=== PATIENT | male | born 1950 | race Caucasian/White ===

== ENCOUNTER 2018-05-01 20:40 | Emergency (ER) | payer MEDICARE, OTHER ==
[2018-05-01] MEDS ORDERED: Ondansetron 4 MG/2 ML SDV IVPUSH PRN (21:11)
[2018-05-01] MEDS ORDERED: Morphine 4 MG/ML Syringe IVPUSH ONE (21:11)
[2018-05-01] MEDS ORDERED: Morphine 2 MG/ML Syringe ONE (21:18)
--- NOTE | 2018-05-01 21:27 | EDM.PDOC ---
ED HPI GENERAL MEDICAL PROBLEM - General Chief Complaint: Gastrointestinal Problem Stated Complaint: abd pain Time Seen by Provider: 05/01/18 20:58 Source of Information: Reports: Patient History Limitations: Reports: No Limitations - History of Present Illness INITIAL COMMENTS - FREE TEXT/NARRATIVE: David is a 67 yo male who presents to the ER with complaints of severe lower abdominal pain. He states the pain initially started this morning and has progressively worsened. Had a normal bowel movement this morning. Denies any constipation or diarrhea. States he will typically go a few times a day and that is regular for him. He had some flank pain yesterday but that has subsided. Denies any fevers. Admits to nausea today with an episode of emesis earlier. States the pain seems to intensify and then will let up a little. 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 No known history of diverticulitis. Last colonoscopy was done in 2015 and showed mild diverticulosis per clinic chart. States he has been getting a lot of gal horses as well lately. Duration: Constant, Getting Worse, Waxing/Waning Location: Reports: Abdomen Quality: Reports: Sharp, Stabbing Improves with: Reports: None Context: Denies: Sick Contact Associated Symptoms: Reports: Loss of Appetite, Nausea/Vomiting Lower Abdominal Pain Score (Numeric/FACES): 6 - Related Data Allergies Allergy/AdvReac Type Severity Reaction Status Date / Time No Known Allergies Allergy Verified 05/01/18 20:49 Home Meds: Home Meds Carvedilol 25 mg PO BID 04/13/15 [History] Furosemide 20 mg PO DAILY 04/13/15 [History] Levothyroxine Sodium 125 mg PO DAILY 04/13/15 [History] Omeprazole 20 mg PO DAILY 04/13/15 [History] Warfarin [Coumadin] 2.5 mg PO DAILY 04/13/15 [History] Ascorbate Calcium [Vitamin C] 500 mg PO DAILY 07/14/16 [History] Aspirin [Adult Low Dose Aspirin EC] 81 mg PO DAILY 07/14/16 [History] Cholecalciferol (Vitamin D3) [Vitamin D3] 2,000 units PO DAILY 07/14/16 [History ] Ezetimibe/Simvastatin [Vytorin 10-40 mg Tablet] 1 tab PO DAILY 07/14/16 [History ] Fish Oil/DHA/EPA [Fish Oil 1,200 MG] 1 each PO DAILY 07/14/16 [History] Folic Acid 1 mg PO DAILY 07/14/16 [History] Losartan [Cozaar] 50 mg PO DAILY 07/14/16 [History] Nitroglycerin [Nitrostat] 0.4 mg SL DAILY PRN 07/14/16 [History] Spironolactone [Aldactone] 25 mg PO DAILY 07/14/16 [History] Testosterone Cypionate [Depo-Testosterone] 200 mg IM Q30D 07/14/16 [History] Ubidecarenone [Co Q-10] 200 mg PO DAILY 07/14/16 [History] Vitamin B Complex 1 cap PO DAILY 07/14/16 [History] Past Medical History HEENT History: Reports: None Cardiovascular History: Reports: Bypass, CAD, Cardiomyopathy, High Cholesterol, Hypertension Respiratory History: Reports: None Gastrointestinal History: Reports: None Genitourinary History: Reports: None Musculoskeletal History: Reports: Arthritis Neurological History: Reports: None Psychiatric History: Reports: None 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, Cottonwood's Disease, Hypothyroidism Hematologic History: Reports: None Immunologic History: Reports: None Oncologic (Cancer) History: Reports: None Dermatologic History: Reports: None - Past Surgical History Head Surgeries/Procedures: Reports: None HEENT Surgical History: Reports: Naso-Sinus Surgery, Tonsillectomy Cardiovascular Surgical History: Reports: Coronary Artery Bypass Respiratory Surgical History: Reports: None GI Surgical History: Reports: Appendectomy, Hernia, Abdominal Male Surgical History: Reports: None Neurological Surgical History: Reports: None Musculoskeletal Surgical History: Reports: None Oncologic Surgical History: Reports: None Social & Family History - Tobacco Use Smoking Status *Q: Never Smoker - Alcohol Use Days Per Week of Alcohol Use: 7 Number of Drinks Per Day: 1 Total Drinks Per Week: 7 - Recreational Drug Use Recreational Drug Use: No ED ROS GENERAL - Review of Systems Review Of Systems: See Below Constitutional: Reports: Decreased Appetite. Denies: Fever, Chills HEENT: Reports: No Symptoms Respiratory: Reports: No Symptoms Cardiovascular: Reports: No Symptoms GI/Abdominal: Reports: Abdominal Pain, Decreased Appetite, Nausea, Vomiting. Denies: Bloody Stool, Constipation, Diarrhea, Stool Incontinence : Reports: Flank Pain (yesterday but has since subsided). Denies: Discharge, Dysuria, Frequency, Hematuria, Urgency, Urinary Retention Musculoskeletal: Reports: Other (gal horses) Skin: Reports: No Symptoms Neurological: Reports: No Symptoms Psychiatric: Reports: No Symptoms ED EXAM, GI/ABD - Physical Exam Exam: See Below Exam Limited By: No Limitations General Appearance: Alert, Moderate Distress Ears: Normal External Exam, Normal Canal, Hearing Grossly Normal, Normal TMs Nose: Normal Inspection, Normal Mucosa, No Blood Throat/Mouth: Normal Inspection, Normal Lips, Normal Teeth, Normal Gums, Normal Oropharynx, Normal Voice, No Airway Compromise Head: Atraumatic, Normocephalic Neck: Normal Inspection, Supple Respiratory/Chest: No Respiratory Distress, Lungs Clear, No Accessory Muscle Use Cardiovascular: Regular Rate, Rhythm, No Edema, No Gallop, No Murmur GI/Abdominal Exam: Soft, No Distention, No Abnormal Bruit, No Mass, Tender, Abnormal Bowel Sounds (absent). No: Distended Neurological: Alert, Oriented, Normal Cognition Psychiatric: Normal Affect, Normal Mood Skin Exam: Warm, Dry, Intact, Normal Color, No Rash Course - Vital Signs Last Recorded V/S: Last Vital Signs Temp 99.5 F 05/01/18 23:20 Pulse 78 05/01/18 23:20 Resp 20 05/01/18 23:20 BP 140/80 05/01/18 23:20 Pulse Ox 95 05/01/18 23:20 - Orders/Labs/Meds Orders: Active Orders 24 hr Category Date Time Status Abdomen 2V AP Flat Upright [CR] Stat Exams 05/01/18 21:09 Taken Abdomen Pelvis w Cont [CT] Routine Exams 05/01/18 Taken UA W/MICROSCOPIC [URIN] Stat Lab 05/01/18 22:16 Ordered Lactated Ringers [Ringers, Lactated] 1,000 ml Med 05/01/18 21:34 Active IV NOW Ondansetron [Zofran] Med 05/01/18 21:11 Active 4 mg IVPUSH Q6H PRN Phytonadione [AquaMephyton] 5 mg Med 05/02/18 00:42 Active Sodium Chloride 0.9% [Normal Saline] 50 ml IV NOW Medication Orders Lactated Ringer's (Ringers, Lactated) 1,000 mls @ 75 mls/hr IV NOW STA Stop: 05/02/18 10:52 Last Admin: 05/01/18 21:36 Dose: 75 mls/hr Phytonadione 5 mg/ Sodium (Chloride) 50.5 mls @ 100 mls/hr IV NOW ONE Stop: 05/02/18 01:12 Ondansetron HCl (Zofran) 4 mg IVPUSH Q6H PRN PRN Reason: Nausea Last Admin: 05/01/18 21:35 Dose: 4 mg Labs: Laboratory Tests 05/01/18 05/01/18 05/01/18 Range/Units 21:09 21:09 21:11 WBC 12.4 H (5.0-10.0) 10^3/uL RBC 4.63 (4.50-6.00) 10^6/uL Hgb 14.8 (14.0-18.0) g/dL Hct 43.7 (40.0-54.0) % MCV 94.4 H (82.0-94.0) fL MCH 32.0 (27.0-32.0) pg MCHC 33.9 (33.0-38.0) g/dL RDW Coeff of [place] 14.9 (11.0-15.0) % Plt Count 177 (150-400) 10^3/uL Neut % (Auto) 73.5 (35-85) % Lymph % (Auto) 10.9 (10-55) % [place] % (Auto) 13.1 (0-16) % Eos % (Auto) 2.3 (0-5) % Baso % (Auto) 0.2 (0-3) % Neut # (Auto) 9.16 H (1.80-7.00) 10^3/uL Lymph # (Auto) 1.35 (1.00-4.80) 10^3/uL [place] # (Auto) 1.63 H (0.00-0.80) 10^3/uL Eos # (Auto) 0.28 (0.00-0.45) 10^3/uL Baso # (Auto) 0.02 10^3/uL PT 39.6 H (9.7-12.3) SEC INR 4.24 H* (0.92-1.18) Sodium 135 L (136-145) mEq/L Potassium 4.0 (3.5-5.0) mEq/L Chloride 100 (98-106) mEq/L Carbon Dioxide 30 (21-32) mmol/L BUN 16 (7-18) mg/dL Creatinine 1.2 (0.7-1.3) mg/dL Est Cr Clr Drug Dosing 57.38 mL/min Estimated GFR (MDRD) > 60 (>=60) mL/min Glucose 122 H (75-99) mg/dL Lactic Acid (0.4-2.0) mmol/L Calcium 8.5 (8.4-10.1) mg/dL Magnesium 1.8 (1.8-2.4) mg/dL Total Bilirubin 1.2 H (0.0-1.0) mg/dL AST 24 (15-37) U/L ALT 42 (12-78) U/L Alkaline Phosphatase 44 L (46-116) U/L Lactate Dehydrogenase 292 H (100-190) U/L C-Reactive Protein 4.8 H (0.2-0.8) mg/dL Total Protein 6.4 (6.4-8.2) g/dL Albumin 3.1 L (3.4-5.0) g/dL Amylase 50 (25-115) U/L Urine Color (YELLOW) Urine Appearance (CLEAR) Urine pH (4.5-8.0) Ur Specific [place] (1.003-1.020) Urine Protein (NEGATIVE) mg/dL Urine Glucose (UA) (NEGATIVE) mg/dL Urine Ketones (NEGATIVE) mg/dL Urine Occult Blood (NEGATIVE) Urine Nitrite (NEGATIVE) Urine Bilirubin (NEGATIVE) Urine Urobilinogen (0.2-1.0) EU/dL Ur Leukocyte Esterase (NEGATIVE) Urine RBC (0-5) /HPF Urine WBC (0-5) /HPF Ur Squamous Epith Cells (NOT SEEN) /HPF Amorphous Sediment (NOT SEEN) /HPF Urine Bacteria (NOT SEEN) /HPF Urine Mucus (NOT SEEN) /HPF 05/01/18 05/01/18 Range/Units 22:16 23:33 WBC (5.0-10.0) 10^3/uL RBC (4.50-6.00) 10^6/uL Hgb (14.0-18.0) g/dL Hct (40.0-54.0) % MCV (82.0-94.0) fL MCH (27.0-32.0) pg MCHC (33.0-38.0) g/dL RDW Coeff of [place] (11.0-15.0) % Plt Count (150-400) 10^3/uL Neut % (Auto) (35-85) % Lymph % (Auto) (10-55) % Nicol[place] % (Auto) (0-16) % Eos % (Auto) (0-5) % Baso % (Auto) (0-3) % Neut # (Auto) (1.80-7.00) 10^3/uL Lymph # (Auto) (1.00-4.80) 10^3/uL [place] # (Auto) (0.00-0.80) 10^3/uL Eos # (Auto) (0.00-0.45) 10^3/uL Baso # (Auto) 10^3/uL PT (9.7-12.3) SEC INR (0.92-1.18) Sodium (136-145) mEq/L Potassium (3.5-5.0) mEq/L Chloride (98-106) mEq/L Carbon Dioxide (21-32) mmol/L BUN (7-18) mg/dL Creatinine (0.7-1.3) mg/dL Est Cr Clr Drug Dosing mL/min Estimated GFR (MDRD) (>=60) mL/min Glucose (75-99) mg/dL Lactic Acid 0.9 (0.4-2.0) mmol/L Calcium (8.4-10.1) mg/dL Magnesium (1.8-2.4) mg/dL Total Bilirubin (0.0-1.0) mg/dL AST (15-37) U/L ALT (12-78) U/L Alkaline Phosphatase (46-116) U/L Lactate Dehydrogenase (100-190) U/L C-Reactive Protein (0.2-0.8) mg/dL Total Protein (6.4-8.2) g/dL Albumin (3.4-5.0) g/dL Amylase (25-115) U/L Urine Color Yellow (YELLOW) Urine Appearance Clear (CLEAR) Urine pH 8.5 H (4.5-8.0) Ur Specific [place] 1.015 (1.003-1.020) Urine Protein 30 H (NEGATIVE) mg/dL Urine Glucose (UA) Negative (NEGATIVE) mg/dL Urine Ketones 15 H (NEGATIVE) mg/dL Urine Occult Blood Negative (NEGATIVE) Urine Nitrite Negative (NEGATIVE) Urine Bilirubin Negative (NEGATIVE) Urine Urobilinogen 1.0 (0.2-1.0) EU/dL Ur Leukocyte Esterase Negative (NEGATIVE) Urine RBC Not seen (0-5) /HPF Urine WBC Not seen (0-5) /HPF Ur Squamous Epith Cells Occasional H (NOT SEEN) /HPF Amorphous Sediment Occasional H (NOT SEEN) /HPF Urine Bacteria Occasional H (NOT SEEN) /HPF Urine Mucus Occasional H (NOT SEEN) /HPF Meds: Medications Generic Name Dose Route Start Last Admin Trade Name Freq PRN Reason Stop Dose Admin Lactated Ringer's 1,000 mls @ 75 mls/hr 05/01/18 21:34 05/01/18 21:36 Ringers, Lactated IV 05/02/18 10:52 75 mls/hr NOW STA Administration Phytonadione 5 mg/ Sodium 50.5 mls @ 100 mls/hr 05/02/18 00:42 Chloride IV 05/02/18 01:12 NOW ONE Ondansetron HCl 4 mg 05/01/18 21:11 05/01/18 21:35 Zofran IVPUSH 4 mg Q6H PRN Administration Nausea Discontinued Medications Generic Name Dose Route Start Last Admin Trade Name Freq PRN Reason Stop Dose Admin Lactated Ringer's 1,000 mls @ 500 mls/hr 05/01/18 21:11 05/01/18 21:36 Ringers, Lactated IV 05/01/18 23:10 Not Given .BOLUS ONE Morphine Sulfate 4 mg 05/01/18 21:11 05/01/18 21:34 Morphine IVPUSH 05/01/18 21:12 4 mg ONETIME ONE Administration Morphine Sulfate Confirm 05/01/18 21:18 05/01/18 21:35 Morphine Administered 05/01/18 21:19 Not Given Dose 4 mg .ROUTE .STK-MED ONE Morphine Sulfate 4 mg 05/01/18 23:24 05/01/18 23:30 Morphine IVPUSH 05/01/18 23:25 4 mg ONETIME ONE Administration - Re-Assessments/Exams Free Text/Narrative Re-Assessment/Exam: CT scan of the abdomen/pelvis was ordered with concerns of ongoing abdominal discomfort. Consulted with radiologist at 2325 with findings of SBO with concerns of ischemic bowel secondary to significant wall thickening. licensed psychiatric technician was called back in to the ER to get a lactic acid and ABG reading. I did consult with [facility] in [place] and Dr. Flores, hospitalist, requested the lactate level. Currently lab is in house and labs are pending. Will be in contact with [facility] once labs are resulted. Reevaluation of David completed. Pain is well controlled currently. He does not appear to be in any distress currently. Abdomen is soft with tenderness with palpation to mid to left lower quadrant. Consultation with Dr. Flores done and she accepted transfer. Discussed anti- coagulation with Dr. Flores and will give 5mg of Vitamin K subcutaneously. Surgeon consulted as well for evaluation of David upon arrival. I discussed with David when he last passed gas again in which he stated he typically doesn' t pass much gas. He admitted during his normal bowel movement this morning. There was a miscommunication as I had thought he had stated this afternoon but he was referring to belching. States he has had a lot of belching recently. Departure - Departure Time of Disposition: 00:49 Disposition: DC/Tfer to [facility] 02 Clinical Impression: Small bowel obstruction - Discharge Information Referrals: Provider,Unknown [Primary Care Provider] - Forms: ED Department Discharge - Problem List & Annotations (1) Small bowel obstruction SNOMED Code(s): 609327645 Code(s): K56.609 - UNSP INTESTNL OBST, UNSP TO PARTIAL VERSUS COMPLETE OBST Status: Acute Current Visit: Yes - Problem List Review Problem List Initiated/Reviewed/Updated: Yes - My Orders Last 24 Hours: My Active Orders 05/01/18 Abdomen Pelvis w Cont [CT] Routine 05/01/18 21:09 Abdomen 2V AP Flat Upright [CR] Stat 05/01/18 21:11 Ondansetron [Zofran] 4 mg IVPUSH Q6H PRN 05/01/18 21:34 Lactated Ringers [Ringers, Lactated] 1,000 ml IV NOW 05/01/18 22:16 UA W/MICROSCOPIC [URIN] Stat 05/02/18 00:42 Phytonadione [AquaMephyton] 5 mg Sodium Chloride 0.9% [Normal Saline] 50 ml IV NOW - Assessment/Plan Last 24 Hours: My Active Orders 05/01/18 Abdomen Pelvis w Cont [CT] Routine 05/01/18 21:09 Abdomen 2V AP Flat Upright [CR] Stat 05/01/18 21:11 Ondansetron [Zofran] 4 mg IVPUSH Q6H PRN 05/01/18 21:34 Lactated Ringers [Ringers, Lactated] 1,000 ml IV NOW 05/01/18 22:16 UA W/MICROSCOPIC [URIN] Stat 05/02/18 00:42 Phytonadione [AquaMephyton] 5 mg Sodium Chloride 0.9% [Normal Saline] 50 ml IV NOW Plan: David will be transferred to [place] via ALS transfer for close monitoring and pain control. Dr. Flores is accepting physician at [facility] in [place]. Will discharge prior to transfer. Risks and benefits discussed with patient and his . Risks of transfer: worsening of pain, condition or possible MVA. Benefits of transfer: appropriate diagnostics, surgical intervention if needed and improvement of condition. RIsks of non-transfer: worsening of condition with multiple co-morbidities, no appropriate surgical intervention if needed. Benefits of non-transfer: staying in familiar environment and close to home. David and his verbalized understanding and in agreement with transfer.
[2018-05-01] MEDS ORDERED: Lactated Ringers 1,000 ML IV STA (21:34)
[2018-05-01] MEDS: Lactated Ringers 1,000 ML IV ONE ×2 (21:35→21:36)
[2018-05-01 21:57] LABS: CHLORIDE,CL 100 mEq/L (98-106); SODIUM,NA 135 mEq/L (136-145)
[2018-05-01] MEDS ORDERED: Morphine 2 MG/ML Syringe IVPUSH ONE (23:24)
[2018-05-01 23:53] VITALS: BP 140/80
[2018-05-02] MEDS ORDERED: Phytonadione 5 MG in Sodium Chloride 0.9% 50 ML IV ONE (00:42)
== END 2018-05-02 01:30 ==
LOC: CC.ED 20:40
DX: K56.609 Unspecified intestinal obstruction, unspecified as to partial versus complete obstruction (principal); E78.00 Pure hypercholesterolemia, unspecified; I10 Essential (primary) hypertension; Z79.899 Other long term (current) drug therapy; Z79.82 Long term (current) use of aspirin
CPT/HCPCS: 36415; 74019; 74177; 80053; 81001; 82150; 83605; 83615; 83735; 85025; 85610; 86140; 96361; 96374; 96375; 96376; 99285; J2270; J2405; J3430; J7120; Q9967

== ENCOUNTER 2019-05-27 04:55 | Emergency (ER) | payer MEDICARE, OTHER ==
[2019-05-27] MEDS ORDERED: Ondansetron 4 MG/2 ML SDV IVPUSH STA ×2 (05:20→07:16)
[2019-05-27] MEDS ORDERED: Morphine 10 MG/ML Syringe IVPUSH ONE ×2 (05:20→07:16)
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
[2019-05-27 05:52] LABS: CHLORIDE,CL 105 mEq/L (98-106); SODIUM,NA 139 mEq/L (136-145)
[2019-05-27] MEDS ORDERED: Sodium Chloride 0.9% 500 ML IV SCH (06:15)
[2019-05-27] MEDS ORDERED: Iopamidol 755 Mg/ML 100 ML Bottle IVPUSH ONE (06:32)
[2019-05-27 08:11] VITALS: BP 138/83; PULSE 72
== END 2019-05-27 08:51 ==
LOC: CC.ED 04:55
DX: K81.0 Acute cholecystitis (principal); I25.10 Atherosclerotic heart disease of native coronary artery without angina pectoris; E78.00 Pure hypercholesterolemia, unspecified; I10 Essential (primary) hypertension; E03.9 Hypothyroidism, unspecified; Z88.8 Allergy status to other drugs, medicaments and biological substances; Z79.899 Other long term (current) drug therapy; Z79.01 Long term (current) use of anticoagulants; Z79.82 Long term (current) use of aspirin
CPT/HCPCS: 36415; 74177; 80053; 81001; 82150; 83690; 84484; 85025; 85610; 93005; 96361; 96374; 96375; 96376; 99285; J2270; J2405; J7040; Q9967; 93010; 99284